=== PATIENT | male | born 1970 | race Two or more races ===

== ENCOUNTER 2021-03-06 20:45 | Emergency (ER) | payer OTHER ==
[~2021-03-06] VITALS: Ht 188 cm; Wt 86.2 kg
[2021-03-06] MEDS ORDERED: LIDOCAINE 1%-EPI 1:100,000 20 ML VIAL ONE (21:24)
--- NOTE | 2021-03-06 21:24 | NUR ---
PATIENT BIBSELF C/O CYST, PATIENT IS A/O X 4, RR EVEN AND UNLABORED, NO SOB NOTED. PATIENT CONNECTED TO [employer]DA[employer] MONITOR AND POX.
--- NOTE | 2021-03-06 21:30 | NUR ---
ER DOC AT BEDSIDE
[2021-03-06] MEDS ORDERED: IBUP-1955 PO (21:47)
[2021-03-06] MEDS ORDERED: CEPH500T PO (21:47)
[2021-03-06] MEDS ORDERED: SULF1TAB48 PO (21:47)
[2021-03-06] MEDS ORDERED: CEPHALEXIN MONOHYDRATE 500 MG CAPSULE PO ONE (21:49)
[2021-03-06] MEDS ORDERED: SULFAMETH/TRIMETH 800/160 MG 1 UDTAB TABLET ONE (21:50)
[2021-03-06] MEDS ORDERED: TDAP [DIPH/PERTUSSIS/TET] 0.5 ML VIAL IM ONE (21:50)
[2021-03-06] MEDS: CEPHALEXIN MONOHYDRATE 500 MG CAPSULE PO ONE (21:57)
[2021-03-06] MEDS: SULFAMETH/TRIMETH 800/160 MG 1 UDTAB TABLET PO ONE (21:57)
[2021-03-06] MEDS: TDAP [DIPH/PERTUSSIS/TET] 0.5 ML VIAL IM ONE (21:58)
--- NOTE | 2021-03-06 21:58 | NUR ---
Patient discharged to home in stable condition. Rx and Written and verbal after care instructions given. Patient verbalizes understanding of instruction.
[2021-03-06 22:05] VITALS: BP 124/71
== END 2021-03-06 22:05 | disposition home or self-care (01) ==
LOC: ER 20:54
DX: L05.01 Pilonidal cyst with abscess (principal); F10.10 Alcohol abuse, uncomplicated; F17.200 Nicotine dependence, unspecified, uncomplicated; Y90.9 Presence of alcohol in blood, level not specified; Z79.899 Other long term (current) drug therapy; Z60.2 Problems related to living alone
CPT/HCPCS: 10080; 90471; 90715; 99283; A6403; A6407; J3490